=== PATIENT | female | born 1955 | race Caucasian/White ===

== ENCOUNTER 2025-05-14 11:29 | Emergency (ER) | payer MEDICARE, SELFPAY ==
[2025-05-14 11:56] VITALS: BP 138/77; PULSE 62; RESP 16; TEMP 35.9; O2SAT 100
--- NOTE | 2025-05-14 13:42 | ED_ITS ---
HPI - Wound/Laceration General Chief Complaint: Wound/Laceration Stated Complaint: left hand laceration Time Seen by Provider: 05/14/25 11:36 Source: patient Mode of arrival: ambulatory Limitations: no limitations History of Present Illness HPI narrative: Patient is a 69-year-old female who presents with laceration to left palm. States she was holding a ceramic bowl when it shattered and cut her hand. Tetanus shot was updated in 2020. Denies any numbness, tingling or weakness to fingers. Related Data Home Medications ?Medication ?Instructions ?Recorded ?Confirmed ?Last Taken ?Type aspirin 81 mg tablet,delayed 81 mg PO DAILY 05/14/25 05/14/25 Unknown History release (Adult Low Dose Aspirin) atorvastatin 20 mg tablet mg 05/14/25 Unknown History azelaic acid 15 % topical gel topical 05/14/25 Unknown History levothyroxine 50 mcg tablet mcg 05/14/25 Unknown History metoprolol succinate 50 mg mg PO 05/14/25 Unknown History tablet,extended release 24 hr omega 2-oan-ieg-fish oil 1,000 mg 1 cap PO DAILY 05/14/25 05/14/25 Unknown History (120 mg-180 mg) capsule (Fish Oil) paroxetine HCl 10 mg tablet mg PO 05/14/25 Unknown History triamcinolone acetonide-l.s.b. 05/14/25 Unknown History vitamin D3 250 mcg (10,000 1 cap PO DAILY 05/14/25 05/14/25 Unknown History unit)-vitamin K2 45 mcg capsule Allergies Allergy/AdvReac Type Severity Reaction Status Date / Time No Known Allergies Allergy Verified 05/14/25 11:52 Review of Systems 2 Review of Systems: All systems reviewed & are unremarkable except as noted in HPI and below Constitutional: Constitutional: Denies body ache(s), Denies chills, Denies fatigue, Denies fever(s), Denies headache(s), Denies malaise and Denies weakness Eyes: Eyes: Denies blurry vision, Denies irritation and Denies loss of vision ENT: Denies otalgia, Denies headache(s), Denies nasal discharge, Denies sinus pain and Denies sore throat Cardiovascular: Cardiovascular: Denies chest pain, Denies irregular heart rhythm and Denies dyspnea Respiratory: Respiratory: Denies dyspnea Gastrointestinal: Gastrointestinal: Denies abdominal pain, Denies melena, Denies hematochezia, Denies diarrhea, Denies nausea and Denies vomiting Musculoskeletal: Musculoskeletal: Denies back pain, Denies myalgias and Denies arthralgias Integumentary/Breasts: Skin/Breast: Denies pruritus, Denies rash and Reports wounds Neurologic: Denies headache(s), Denies loss of vision and Denies weakness Psychiatric: Psychiatric: Reports no additional psychiatric complaints Endocrine: Endocrine: Denies fatigue PMFSH Comments At time of signature, agree with nursing past medical, surgical, social and family history. There is no relevant family history pertinent to the presenting complaint. Exam 2 Const: General: cooperative, healthy appearing, comfortable, no acute distress and well nourished Nutritional Appearance: well nourished O rientation/consciousness: patient oriented x3 Limitations: no limitations HENMT: Head: normal to inspection, normocephalic and atraumatic Ears: h earing grossly normal bilaterally and external ears normal Face/Nose/Sinus: N ormal external nose present, normal facial exam and face symmetric Face and sinus: normal facial exam and face symmetric Mouth: Yes lip normal Eyes: General: appearance normal, both eyes and all related structures A lignment and Position: alignment normal and position normal Periorbital: p eriorbital findings normal Eyelids: eyelids normal Pupils: Equal, round and reactive pupils present EOM: EOMs intact bilaterally Neck: Neck: normal visual inspection, full ROM and supple Chest: Chest palpation & inspection: normal inspection of the chest Resp: Effort & Inspection: normal respiratory effort and able to speak in complete sentences Auscultation: clear to auscultation bilaterally Cardio: Rate: regular rate Rhythm: regular rhythm Heart sounds: S1 normal heart sound present and S2 normal heart sound present GI: Inspection: normal to inspection Skin: General skin exam: normal color and no rashes or lesions noted Neuro: General: patient oriented x3 and moves all extremities Cranial nerves: Yes Equal, round and reactive pupils present Speech: normal speech Gait exam (Neuro): Normal gait present Extrem: General: normal to inspection, full ROM and no edema Left upper extremity: wrist normal to inspection, normal ROM, normal vascular exam and radial pulse present; no tenderness and no swelling and hand normal to inspection, normal capillary refill, neuromotor exam normal, neurosensory exam normal, tendon exam normal, normal ROM of fingers, no swelling and laceration palm ulnar aspect distal Details: linear (2 cm), actively bleeding, involving subcutaneous tissue, with motor nerve function intact and with sensation intact; no foreign body present, not contaminated and not involving muscle tissue; no unusual warmth Hand/finger images: 1. 2 cm laceration. Stops just inside of finger webbing Psych: Appearance: grossly normal and well kempt Mental Status: mental status grossly normal Speech and movement: Normal speech and movement present Affect: normal affect Attitude: cooperative Thought process: Normal thought process present Course Course Emergency Course: Patient is aware of diagnosis, understands and agrees to treatment plan. Anticipatory guidance given. Patient agrees to follow-up as directed and is aware of reasons to seek care at the emergency department. Portions of this record may have been created with voice recognition software Level of Care: Express Care Visit Vital Signs Vital signs: Vital Signs Temperature 35.9 C L 05/14/25 11:56 Pulse Rate 62 05/14/25 11:56 Respiratory Rate 16 05/14/25 11:56 Blood Pressure 138/77 05/14/25 11:56 Pulse Oximetry 100 05/14/25 11:56 Temperature 35.9 C L 05/14/25 11:56 Pulse Rate 62 05/14/25 11:56 Respiratory Rate 16 05/14/25 11:56 Blood Pressure 138/77 05/14/25 11:56 Pulse Oximetry 100 05/14/25 11:56 Reviewed Procedures Laceration Laceration 1: Date: 05/14/25 Time: 13:05 Site: hand Side (If applicable): left Size (cm): 2 Description: linear Depth: simple, single layer Local Anesthetic: lidocaine 1% Amount of anesthesia used (mL): 4 (2 ml accidently wasted on floor) Pre-repair: wound explored and irrigated extensively ====== Skin Level ====== Skin layer closed with: vicryl Size (cm): 4-0 Number of sutures: 5 Technique: simple, interrupted ====== Subcutaneous Layer ====== ====== Muscle Layer ====== ====== Tendon Layer ====== Dressing: Procedure explained patient. Verbal consent obtained. Patient tolerated procedure well. Wound is now well-approximated and bleeding is controlled MDM - Wound/Laceration MDM Narrative Medical decision making narrative: Wound explored for foreign body and copious irrigation provided with no evidence of FB. The laceration was identified to be 2 cm in length and located at keller aspect between 4th and 5th digit. The laceration was cleansed and no debris was noted. Local anesthesia was obtained by injecting 1% lidocaine at the laceration site. The laceration was then irrigated with 300cc of high-pressure irrigation. The wound was explored and no foreign bodies were found. There was no evidence of tendon or nerve lacerations. The wound was closed with 5 interrupted sutures. A sterile dressing was then applied and anticipatory guidance was provided. Tetanus prophylaxis was not given as she was up-to-date. Pt well hydrated appearing, in no respiratory distress, hemodynamically stable. Recommend supportive care. The patient is stable at time of discharge the clinical impression was discussed and the patient was given the opportunity to ask questions, which were addressed as completely as possible given the information available at present. Anticipatory guidance and return to care precautions were discussed and the importance of primary care follow-up was stressed and encouraged. The patient voiced understanding of the plan, indications to return, and the need for follow-up. Patient is appropriate for outpatient treatment and follow-up. Differential Diagnosis Differential diagnosis: Likely laceration Discharge Plan Discharge Clinical Impression: Laceration Patient Disposition: Home Condition: Stable Instructions: Laceration (ED) Additional Instructions: Keep wound clean, and dry. Apply antibiotic ointment twice daily. Cover with bandage as needed to prevent contamination. Clean with soap and water twice daily, but do not soak, take baths, or swim until wound is completely healed. Do not clean with hydrogen peroxide. If any signs of infection such as redness, swelling, increasing pain, drainage of purulent discharge, streaks up your extremity develop, seek medical attention immediately. Followup with your primary care provider in [10-14] days for suture removal. After sutures are removed, keep your scar out of the sun. You may use OTC silicone pad and/or scar massage with ointment (for 10-15 min a day) after one month. Talk to your doctor if you think you are developing a keloid. Tamara Jaimes NP will be a part of [facility] in the [facility] Patient Language: Mohawk Prescriptions: New mupirocin 2 % ointment 1 applic topical BID Qty: 15 0RF No Action paroxetine HCl 10 mg tablet PO atorvastatin 20 mg tablet metoprolol succinate 50 mg tablet extended release 24 hr PO levothyroxine 50 mcg tablet azelaic acid 15 % gel TOPICAL aspirin [Adult Low Dose Aspirin] 81 mg tablet,delayed release (DR/EC) 81 mg PO DAILY omega 0-moz-dzn-fish oil [Fish Oil] 1,000 (120-180) mg capsule 1 cap PO DAILY vitamin D3-vitamin K2 250 mcg (10,000 unit)-45 mcg capsule 1 cap PO DAILY triamcinolone acetonide-l.s.b. Follow-up/Referrals: UNKNOWN,DOCTOR [Primary Care Provider] - Time of Disposition: 13:46
== END 2025-05-14 13:49 | disposition home or self-care (01) ==
PROVIDERS: Emergency Provider Nurse Practitioner Family
DX: S61.412A Laceration without foreign body of left hand, initial encounter (principal); W45.8XXA Other foreign body or object entering through skin, initial encounter; Z79.82 Long term (current) use of aspirin; I48.91 Unspecified atrial fibrillation; E78.00 Pure hypercholesterolemia, unspecified; I34.1 Nonrheumatic mitral (valve) prolapse; M85.80 Other specified disorders of bone density and structure, unspecified site; E03.9 Hypothyroidism, unspecified; L71.9 Rosacea, unspecified; F41.9 Anxiety disorder, unspecified
CPT/HCPCS: 12001; 99203; G0463; J2003